=== PATIENT | female | born 1955 | race Caucasian/White ===

== ENCOUNTER → 2017-07-05 | Outpatient (CLI) | payer OTHER | LOC: MC.RAD 06-21 13:00 | DX: Z12.31 Encounter for screening mammogram for malignant neoplasm of breast (principal) ==

== ENCOUNTER → 2017-12-11 | Outpatient (CLI) | payer OTHER | LOC: COL.RAD 08:46 | DX: M19.072 Primary osteoarthritis, left ankle and foot (principal) | CPT/HCPCS: J3301; Q9967 ==

== ENCOUNTER → 2020-07-08 | Outpatient (CLI) | payer MEDICARE | LOC: MC.RAD 09:52 | DX: N64.59 Other signs and symptoms in breast (principal) ==

== ENCOUNTER 2021-09-22 10:03 | Day surgery (SDC) | payer MEDICARE ==
[~2021-09-22] VITALS: Ht 157.5 cm; Wt 84.5 kg
[2021-09-22 11:00] VITALS: BP 128/70; PULSE 65; TEMP 98.3
[2021-09-22] MEDS ORDERED: CRESTOR 10MG10 MG PO (11:04)
[2021-09-22] MEDS ORDERED: GLUCOPHAGE XR500 M1 PO (11:04)
[2021-09-22] MEDS ORDERED: MASON NATURAL2000 IU PO (11:05)
[2021-09-22] MEDS ORDERED: PRILOSEC 20MG20 MG PO (11:05)
[2021-09-22] MEDS ORDERED: PRINIVIL20 MG PO (11:05)
[2021-09-22] MEDS ORDERED: VITAMINC1000TA PO (11:06)
[2021-09-22] MEDS ORDERED: CENTRUM SILVER1 CTB PO (11:06)
[2021-09-22 12:55] VITALS: BP 121/77; PULSE 66; TEMP 96.6
--- NOTE | 2021-09-22 12:55 | NUR ---
Patient arrives [place] [facility] [place], accompanied by Jaclyn RN. She is alert and oriented. She ambulates with steady gait and standby assist to the chair in her room. VSS on room air. She is offered and receives coffee to drink. PIV to TKO.
[2021-09-22 13:10] VITALS: BP 131/65; PULSE 63
[2021-09-22 13:25] VITALS: BP 124/75; PULSE 63
--- NOTE | 2021-09-22 13:43 | NUR ---
Report given to SUNDAY Last at this time.
--- NOTE | 2021-09-22 14:30 | NUR ---
Dr. Flanagan is at the patient's bedside discussing the findings of the procedure with the patient and her .
--- NOTE | 2021-09-22 14:35 | NUR ---
The patient was escorted out via wheelchair to a private vehicle by SUNDAY Last. The patient's belongings and discharge paperwork were sent with her. The patient's is present to drive her home.
== END 2021-09-22 14:35 | disposition home or self-care (01) ==
LOC: SDCO 10:03
DX: K21.9 Gastro-esophageal reflux disease without esophagitis (principal); K31.7 Polyp of stomach and duodenum; K22.89 Other specified disease of esophagus; R05.9 Cough, unspecified
CPT/HCPCS: J2704; J7120

== ENCOUNTER 2023-09-30 15:25 | Emergency (ER) | payer MEDICARE ==
[~2023-09-30] VITALS: Ht 157.5 cm; Wt 78.2 kg
[~2023-09-30 15:25] MED LIST: CENTRUM SILVER1 CTB PO; CRESTOR 10MG10 MG PO; GLUCOPHAGE XR500 M1 PO; MASON NATURAL2000 IU PO; PRILOSEC 20MG20 MG PO; PRINIVIL20 MG PO; VITAMINC1000TA PO
[2023-09-30 15:32] VITALS: TEMP 97.2
[2023-09-30] MEDS ORDERED: levETIRAcetam 100 ML IV ONE (16:15)
[2023-09-30] MEDS ORDERED: dexAMETHasone 10 MG/ML VIAL IV ONE (16:30)
[2023-09-30 16:46] LABS: BASO # 0.1 K/mm3 (0.0-0.2); BASO % 0.9 % (0.0-2.0); EOS # 0.1 K/mm3 (0.0-0.7); GRAN # 4.3 K/mm3 (1.4-6.5); HEMATOCRIT 41.2 % (37.0-47.0); HEMOGLOBIN 13.9 g/dl (12.5-16.0); LYMPH # 1.9 K/mm3 (1.2-3.4); LYMPH % 27.6 % (20.0-51.0); MEAN CELL VOLUME 87 fl (80.0-100.0); MEAN CORPUSCULAR HEMOGLOBIN 29 pg (27-31); MEAN CORPUSCULAR HGB CONC 34 g/dl (33.0-37.0); MONO # 0.5 K/mm3 (0.1-0.6); MONO % 7.4 % (1.7-9.3); PLATELET COUNT 324 K/mm3 (130-400); RED BLOOD COUNT 4.75 M/mm3 (4.10-5.30); REDCELL DISTRIBUTION WIDTH-CV 13.4 % (11.5-14.5)
[2023-09-30 17:02] LABS: ALBUMIN 4.3 gm/dL (3.4-4.8); BILIRUBIN,TOTAL 0.4 mg/dL (0.2-1.2); C-REACTIVE PROTEIN 0.1 mg/dL (0.00-0.50); CALCIUM 10.9 mg/dL (8.4-10.2); CREATININE, serum 1.15 mg/dL (0.57-1.11); POTASSIUM 3.5 mmol/L (3.5-4.5); TOTAL PROTEIN 7.1 gm/dL (6.2-8.1)
[2023-09-30 20:29] VITALS: BP 136/71; PULSE 82
== END 2023-09-30 20:39 | disposition home or self-care (01) ==
LOC: COL.ER 15:25
PROVIDERS: Family Medicine
DX: D32.0 Benign neoplasm of cerebral meninges (principal)
CPT/HCPCS: J1100; J1953